=== PATIENT | female | born 1950 | race Caucasian/White ===

== ENCOUNTER 2021-03-04 16:05 | Inpatient (IN) | payer OTHER ==
[~2021-03-04] VITALS: Ht 165.1 cm; Wt 74.4 kg
--- NOTE | 2021-03-04 16:17 | NUR ---
Pt BIB private ambulance, reports Pt has SI, unknown plan. Pt currently denies SI (previously had no plan), HI, AH, and VH. Pt has no physical complaints. Pt denies CP, SOB, dizziness, n/v, no distress noted.
--- NOTE | 2021-03-04 16:25 | NUR ---
Pt has [address] for DTS and DTO.
[2021-03-04] MEDS ORDERED: HYDR25TA4 PO (16:32)
--- NOTE | 2021-03-04 16:50 | NUR ---
Called report to Sophia tucker RN
[2021-03-04 17:20] VITALS: BP 150/86
[2021-03-04] MEDS ORDERED: MAGNESIUM HYDROXIDE 30 ML LIQUID UDC PO PRN (18:15)
[2021-03-04] MEDS ORDERED: TEMAZEPAM 7.5 MG CAPSULE PO PRN (18:15)
[2021-03-04] MEDS ORDERED: MAG HYDROX/AL HYDROX/SIMETH 30 ML LIQUID UDC PO PRN (18:15)
[2021-03-04] MEDS ORDERED: LORAZEPAM 1 MG TABLET PO PRN (18:15)
[2021-03-04 20:05] VITALS: BP 140/88
--- NOTE | 2021-03-04 20:25 | NUR ---
DAUGHTER IONA WAS NOTIFY OF PATIENT ADMISSION TO [facility] AT [phone] SHE STATED TO MAKE SURE THAT THE PATIENT IS ALSO NOTIFIED. NIKA RUIZ WAS ALSO NOTIFIED OF ADMISSION TO [facility] AT [phone]. HE WAS INFORMED OF UNIT RULES VISITING HOURS AND PHONE NUMBER. AGREED WITH THE ADMISSION. HE ALSO STATED THAT HE PREFER TO BE REACHED AT THIS NUMBER: [phone]. WILL CONTINUE TO MONITOR,
--- NOTE | 2021-03-04 21:54 | NUR ---
Received patient in her bed, pleasant upon approach, interacts with staff and peers. Med compliant. Semi fair insight and semi fair judgement. Patient will remain in a psych facility for further evaluation.
[2021-03-04] MEDS: ACETAMINOPHEN 325 MG TABLET PO PRN (23:47)
[2021-03-05 07:30] VITALS: BP 120/73
[2021-03-05] MEDS: HYDROCHLOROTHIAZIDE 25 MG TABLET PO SCH (09:19)
[2021-03-05] MEDS: THIAMINE HCL 100 MG TABLET PO SCH (09:19)
--- NOTE | 2021-03-05 09:39 | NUR ---
Firearms Report: [employer] completed and submitted a [employer] firearms report for 5150 grave disability certification. A copy of report has been placed in patient chart.
--- NOTE | 2021-03-05 10:38 | NUR ---
SW Initial Discharge Plan: Patient currently resides at home with Yaw located at [address] [place] [address]; ([phone]). Patient would want to return back home upon dc. This SW contacted patient's Yaw ([phone]) to discuss treatment and discharge plan, however, was unavailable at this time. SW will coordinate with patient, family, and MD to help coordinate proper discharge.
--- NOTE | 2021-03-05 10:38 | NUR ---
SW Substance Abuse Intervention: Patient was provided with a brief substance abuse intervention and referred to [facility] ([phone]), [facility] ([phone]), and [facility] ([phone]) for alcohol use.
--- NOTE | 2021-03-05 10:39 | NUR ---
SW Family Contact: This SW contacted patient's Yaw ([phone]) to discuss treatment and discharge plan, however, was unavailable at this time. This SW attempted to contact Yaw's cellphone as well ([phone]) and the mailbox was full.
--- NOTE | 2021-03-05 11:05 | NUR ---
UR Note: Obtained auth# [id number] from [facility] @ [phone] 6 days approved per Selene H 03/04-03/09. No Head Bander And Liner Operator. Assigned at this time. Head Bander And Liner Operator. is now assigned at [phone] per intake department. This SW contacted turret punch operator to find more information on patient's Head Bander And Liner Operator and who to contact during concurrent review on 03/09 to contact Inés Dumas ([phone]) who requires verbal clinicals.
[2021-03-05 17:03] VITALS: BP 135/85
[2021-03-05] MEDS: ACETAMINOPHEN 325 MG TABLET PO PRN (17:18)
[2021-03-05 20:06] VITALS: BP 143/68
[2021-03-05] MEDS: MIRTAZAPINE 15 MG TABLET PO SCH (20:06)
[2021-03-06 07:30] VITALS: BP 129/78
[2021-03-06] MEDS: THIAMINE HCL 100 MG TABLET PO SCH (08:40)
[2021-03-06] MEDS: HYDROCHLOROTHIAZIDE 25 MG TABLET PO SCH (08:41)
--- NOTE | 2021-03-06 14:38 | NUR ---
SW Family Contact: This SW contacted patient's Yaw ([phone]) and was unavailable. This SW unable to leave a voicemail due to his mailbox being full.
--- NOTE | 2021-03-06 14:39 | NUR ---
Individual Therapy: sub assembly team worker met with patient for brief counseling to help address patient's presenting SI. Patient denies SI. She reported to this SW she was never "SI" and that drinking alcohol causes her to feel this way. Patient is fixated on discharge and wants to go home. This SW actively listened to pt and educated pt on her presenting problem and why she was brought to the hospital.
[2021-03-06 16:53] VITALS: BP 113/69
[2021-03-06 20:00] VITALS: BP 122/85
[2021-03-06] MEDS: MIRTAZAPINE 15 MG TABLET PO SCH (20:52)
--- NOTE | 2021-03-07 06:48 | NUR ---
Received patient in their room. Pleasant and calm upon approach. Compliant with medications. Slept 7.30 hours, all patient needs were met and attended to.
[2021-03-07 07:30] VITALS: BP 113/65
[2021-03-07 07:42] LABS: BASOPHILS % (AUTO) 0.5 % (0.0-2.0); EOSINOPHILS # (AUTO) 0.1 K/uL (0.0-0.7); EOSINOPHILS % (AUTO) 1.6 % (0.0-7.0); HEMATOCRIT 40.9 % (31.2-41.9); HEMOGLOBIN 13.9 g/dL (10.9-14.3); LYMPHOCYTES # (AUTO) 2.2 K/uL (20.0-40.0); LYMPHOCYTES % (AUTO) 32.8 % (20.5-51.5); MEAN CORPUSCULAR HEMOGLOBIN 33.7 uug (24.7-32.8); MEAN CORPUSCULAR HGB CONC 34 g/dL (32.3-35.6); MEAN CORPUSCULAR VOLUME 98.7 fL (75.5-95.3); MONOCYTES # (AUTO) 0.7 K/uL (2.0-10.0); MONOCYTES % (AUTO) 9.9 % (0.0-11.0); NEUTROPHILS # (AUTO) 3.8 K/uL (1.8-8.9); NEUTROPHILS % (AUTO) 55.2 % (38.5-71.5); PLATELET COUNT (AUTO) 191 K/uL (179-408); RED BLOOD CELL COUNT(AUTO) 4.14 MIL/uL (3.63-4.92); WHITE BLOOD COUNT (AUTO) 6.8 K/uL (3.8-11.8)
[2021-03-07 07:46] LABS: CREATININE 0.9 mg/dL (0.6-1.3); MAGNESIUM 2.2 mg/dL (1.8-2.4); PHOSPHOROUS 4.2 mg/dL (2.5-4.9); POTASSIUM 3.8 mmol/L (3.5-5.1)
[2021-03-07 08:01] LABS: THYROID STIMULATING HORMONE 1.907 mIU/mL (0.358-3.740)
[2021-03-07] MEDS: THIAMINE HCL 100 MG TABLET PO SCH (10:48)
[2021-03-07] MEDS: HYDROCHLOROTHIAZIDE 25 MG TABLET PO SCH (10:49)
[2021-03-07 15:34] VITALS: BP 136/86
[2021-03-07 20:00] VITALS: BP 124/76
[2021-03-07] MEDS: MIRTAZAPINE 15 MG TABLET PO SCH (20:43)
--- NOTE | 2021-03-08 06:24 | NUR ---
Pt is awake, pleasant on approach. No agitation, noted, compliant with medications. Pt denies SI, verbally contracts for safety. Denies AH/VH. Able to verbalize her needs. No agitation or aggressive behaviors. Anxious about returning to her previous facility. Visible on the unit, interacts with peers and staff. Denies pain, VS stable. Slept 7.15 hours.
[2021-03-08 07:30] VITALS: BP 127/72
[2021-03-08] MEDS: THIAMINE HCL 100 MG TABLET PO SCH (08:19)
[2021-03-08] MEDS: HYDROCHLOROTHIAZIDE 25 MG TABLET PO SCH (08:20)
[2021-03-08 15:18] VITALS: BP 134/81
--- NOTE | 2021-03-08 15:37 | NUR ---
received patient alert and oriented x3 denies any suicidal ideation took all AM medication . encourage to attend group activity watch TV with other peers.will continue close monitoring.
[2021-03-08 20:03] VITALS: BP 134/81
[2021-03-08] MEDS: MIRTAZAPINE 15 MG TABLET PO SCH (20:08)
[2021-03-09 07:30] VITALS: BP 120/75
[2021-03-09] MEDS: THIAMINE HCL 100 MG TABLET PO SCH (08:29)
[2021-03-09] MEDS: HYDROCHLOROTHIAZIDE 25 MG TABLET PO SCH (08:30)
--- NOTE | 2021-03-09 09:39 | NUR ---
Court Hearing: Patient's court hearing was today for 5250 and it was upheld for GD.
--- NOTE | 2021-03-09 10:46 | NUR ---
UR Note: Obtained auth# [id number]. This SW contacted nIés Dumas hospice case manager ([phone]) for concurrent clinicals. This SW left a voicemail of pt's clinicals.
--- NOTE | 2021-03-09 13:31 | NUR ---
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
[2021-03-09 15:46] VITALS: BP 129/90
[2021-03-09 20:12] VITALS: BP 128/77
[2021-03-09] MEDS: MIRTAZAPINE 15 MG TABLET PO SCH (20:48)
--- NOTE | 2021-03-10 02:03 | NUR ---
Received patient in dining area socializing with other resident. Patient alert able to make some needs know. Patient has no complain of pain, assisted with toileting, kept clean and dry. Patient sleep well, calm at this time, cont to monitor.
[2021-03-10 07:30] VITALS: BP 134/84
[2021-03-10 08:30] VITALS: BP 134/84
[2021-03-10] MEDS: HYDROCHLOROTHIAZIDE 25 MG TABLET PO SCH (08:30)
[2021-03-10] MEDS: THIAMINE HCL 100 MG TABLET PO SCH (08:30)
--- NOTE | 2021-03-10 08:34 | NUR ---
SW Discharge Note: Patient will return [address] [place] [address]: ([phone]). Patients Yaw ([phone]) will seed cone picker patient at 11AM. is aware and agreeable with discharge. Patient appears alert and oriented x3 and is happy to be going back home. Patient denies suicidal or homicidal ideation. Patient denies visual/auditory hallucinations. Patient will follow up with (Energy Trader) Dr. Barragan located at [address] [place] [address]; ([phone]) on March 16 9:45AM via telehealth and will provide and monitor psychotropic medications. Patient was provided referrals to the following substance abuse programs for substance abuse: [facility] ([phone]); [facility] [address] [place] [address] ([phone]); [address] [address] ([phone]); [facility] ([phone]); [facility] ([phone]); [facility] ([phone]); [facility] ([phone]) for alcohol use. Patient presented with euthymic mood and congruent affect.
--- NOTE | 2021-03-10 09:38 | NUR ---
Patient will discharge to home [address] [place] [address]: ([phone]). Patient for chicken picker by Yaw ([phone]) at 11AM. is aware and agreeable with discharge. Patient appears alert and oriented x3 and is happy to be going back home. Patient denies suicidal or homicidal ideation. Patient denies visual/auditory hallucinations. Patient will follow up with (Claims Configuration Analyst) Dr. Barragan located at [address] [place] [address]; ([phone]) on March 16 9:45AM via telehealth and will provide and monitor psychotropic medications. Patient was provided referrals to the following substance abuse programs for substance abuse: [facility] ([phone]); [facility] [address] [place] [address] ([phone]); [address] [address] ([phone]); [facility] ([phone]); [facility] ([phone]); [facility] ([phone]); [facility] ([phone]) for alcohol use. Patient complaint with medication and verbalize, she's ready to go home.
--- NOTE | 2021-03-10 10:41 | NUR ---
call in for discharge prescriptions for Dr. Marquez @ [phone] [facility] pharmacy.
--- NOTE | 2021-03-10 10:46 | NUR ---
UR Note: Obtained auth# [id number]. This SW contacted Inés Dumas case reviewer ([phone]) for concurrent clinicals. This SW left a voicemail of pt's clinicals.
--- NOTE | 2021-03-10 11:31 | NUR ---
Patient discharge around 11am in stable condition. superintendent car construction by , Discharge instruction and summary given and discuss. verbalize understanding.
== END 2021-03-10 11:00 | disposition home or self-care (01) | DRG 885 ==
LOC: ER 16:05 → GPS 16:56
PROVIDERS: ADMIT Psychiatry & Neurology Psychiatry; ATTEND Nurse Practitioner Acute Care
DX: F32.2 Major depressive disorder, single episode, severe without psychotic features (principal); F10.20 Alcohol dependence, uncomplicated; I10 Essential (primary) hypertension; Z91.81 History of falling
CPT/HCPCS: 36415; 71045; 83735; 84100; 84443; 85025; A4663